=== PATIENT | female | born 1995 | race African-American/Black ===

== ENCOUNTER 2019-12-21 19:14 | Emergency (ER) | payer OTHER ==
[~2019-12-21] VITALS: Ht 162.6 cm; Wt 72.7 kg
[2019-12-21 19:27] VITALS: BP 161/94
[2019-12-21 20:06] LABS: URINE HCG NEGATIVE (NEG)
[2019-12-21 20:15] LABS: BASOPHILS % (AUTO) 0.3 % (0-1); EOSINOPHILS # (AUTO) 0.2 X10'3 (0-0.9); HEMATOCRIT 37.1 % (35.0-45.0); HEMOGLOBIN 12.3 g/dl (12.0-16.0); LYMPHOCYTES # (AUTO) 2.6 X10'3 (1.1-4.8); LYMPHOCYTES % (AUTO) 24.9 % (21-51); MEAN CORPUSCULAR HEMOGLOBIN 30.1 PG (27.0-31.0); MEAN CORPUSCULAR HGB CONC 33.2 g/dL (33.0-36.5); MEAN CORPUSCULAR VOLUME 90.6 FL (78-98); MEAN PLATELET VOLUME 7.8 FL (7.4-10.4); MONOCYTES # (AUTO) 0.6 X10'3 (0-0.9); MONOCYTES % (AUTO) 5.4 % (2-12); NEUTROPHILS % (AUTO) 67.4 % (42-75); PLATELET COUNT 242 X10'3 (140-440); RED CELL DISTRIBUTION WIDTH 12.6 % (11.5-14.5); WHITE BLOOD COUNT 10.4 X10'3 (4.5-11.0)
[2019-12-21 20:16] LABS: CLARITY,URINE CLEAR (Clear); COLOR,URINE YELLOW (Yellow); GLUCOSE, URINE NEGATIVE (Neg); KETONES,URINE NEGATIVE (Neg); LEUKOCYTE ESTERASE ,URINE NEGATIVE (Neg); NITRITES, URINE NEGATIVE (Neg); OCCULT BLOOD,URINE LARGE (Neg); PH,URINE 5.5 (4.8-8.0); PROTEIN,URINE NEGATIVE (Neg); UROBILINOGEN,URINE 0.2 E.U/dL (0.2-1.0)
[2019-12-21 20:23] LABS: ALANINE AMINOTRANSFERASE 30 U/L (12-78); ALBUMIN 4.4 G/DL (3.4-5.0); ALBUMIN/GLOBULIN RATIO 1.3 (1.1-1.5); ALKALINE PHOSPHATASE 52 IU/L (46-116); ANION GAP 8 (8-16); ASPARTATE AMINO TRANSFERASE 18 U/L (10-37); BILIRUBIN,TOTAL 0.8 MG/DL (0.1-1.0); BLOOD UREA NITROGEN 16 MG/DL (7-18); BUN/CREATININE RATIO 20.3 (6.6-38.0); CALCIUM 9.2 MG/DL (8.5-10.1); CHLORIDE 105 MMOL/L (99-107); CREATININE 0.79 MG/DL (0.40-0.90); GLUCOSE 90 MG/DL (70-104); POTASSIUM 4.3 MMOL/L (3.5-5.1); SODIUM 139 MMOL/L (135-145); TOTAL CARBON DIOXIDE 26.5 MMOL/L (24-32); TOTAL PROTEIN 7.8 G/DL (6.4-8.2); eGFR 88 ML/MIN
[2019-12-21 20:25] LABS: UA COLLECTION TYPE CLN CATCH MIDSTREAM
[2019-12-21 20:26] LABS: BACTERIA,URINE NONE SEEN /HPF (Neg); SQUAMOUS EPITHELIAL CELL,UR FEW /LPF (FEW); WBC,URINE NONE SEEN /HPF (0-4)
--- NOTE | 2019-12-21 22:58 | NUR ---
ABDOMINAL US BEING PERFORMED AT THE BEDSIDE.
[2019-12-21] MEDS ORDERED: IBUP-1984 PO (23:19)
== END 2019-12-21 23:28 | disposition home or self-care (01) ==
LOC: ER 19:15
DX: N93.9 Abnormal uterine and vaginal bleeding, unspecified (principal); R68.83 Chills (without fever); R53.1 Weakness; Z79.899 Other long term (current) drug therapy
CPT/HCPCS: 36415; 76856; 80053; 81001; 81025; 85025; 93976; 99284